=== PATIENT | female | born 1960 | race Caucasian/White ===

== ENCOUNTER 2016-09-14 23:51 | Emergency (ER) | payer OTHER ==
[~2016-09-14] VITALS: Wt 69.0 kg
[~2016-09-14 23:51] MED LIST: LEVO500T72 PO
[2016-09-15] MEDS ORDERED: DIAZEPAM 5 MG/ML SYG IM ONE (02:30)
[2016-09-15] MEDS ORDERED: HYDROCODONE/APAP (10/325) TAB PO ONE (02:30)
--- NOTE | 2016-09-15 02:42 | ERD ---
ER Documentation Chief Complaint Date/Time DATE: 09/15/16 TIME: 02:40 Chief Complaint low back pain while bending and lifting something not able to stand HPI 56-year-old female presents here in emergency department for complaint of lower back pain after bending today. Patient was trying to carry an object, bent down , started to have the pain afterwards. Patient described the pain as throbbing pain, 8/10 scale, is worse with movement accompanied with muscle spasms. Patient denies any incontinence. Patient denies hematuria or dysuria. Patient denies any direct trauma and affected area. Patient denies any numbness or tingling. Patient did not take any medications to help with symptoms. ROS All systems reviewed and are negative except as per history of present illness. Medications Home Meds Active Scripts Levofloxacin* (Levaquin*) 500 Mg Tablet, 500 MG PO DAILY for 7 Days, TAB Prov:THA JENSEN 08/29/15 Allergies Allergies: Coded Allergies: No Known Allergy (Unverified , 08/29/15) PMhx/Soc Medical and Surgical Hx: pt denies Medical Hx, pt denies Surgical Hx History of Surgery: Yes (REMOVAL OF TUMOR @ [facility]) Anesthesia Reaction: No Hx Neurological Disorder: No Hx Respiratory Disorders: No Hx Cardiac Disorders: No Hx Psychiatric Problems: No Hx Miscellaneous Medical Probl: No Hx Alcohol Use: No Hx Substance Use: No Hx Tobacco Use: No Smoking Status: Never smoker FmHx Family History: No coronary disease, No diabetes, No other Physical Exam Vitals Vital Signs Date Time Temp Pulse Resp B/P Pulse Ox O2 Delivery O2 Flow Rate FiO2 09/14/16 23:53 98.0 70 21 135/78 100 Physical Exam GENERAL: The patient is well developed and appropriate for usual state of health, in no apparent distress. CHEST: Clear to auscultation bilaterally. There are no rales, wheezes or rhonchi. HEART: Regular rate and rhythm. No murmurs, clicks, rubs or gallops. No S3 or S4. ABDOMEN: Soft, nontender and nondistended. Good bowel sounds. No rebound or guarding. No gross peritonitis. No gross organomegaly or masses. No Russell sign or McBurney point tenderness. BACK: No midline or flank tenderness. Muscle Spasms noted in the paraspinal aspect of the lumbar spine. Limitation of movement of the lumbar spine because of pain EXTREMITIES: Equal pulses bilaterally. There is no peripheral clubbing, cyanosis or edema. No focal swelling or erythema. Full range of motion. Grossly neurovascularly intact. NEURO: Alert and oriented. Cranial nerves 2-12 intact. Motor strength in all 4 extremities with 5/5 strength. Sensation grossly intact. Normal speech and gait. SKIN: There is no apparent rash or petechia. The skin is warm and dry. HEMATOLOGIC AND LYMPHATIC: There is no evidence of excessive bruising or lymphedema. No gross cervical, axillary, or inguinal lymphadenopathy. Results 24 hrs Current Medications Medications (Trade) Dose Ordered Sig/Adalid Route PRN Reason Start Time Stop Time Status Last Admin Dose Admin Acetaminophen/ Hydrocodone Bitart ([place] (10/325)) 1 tab ONCE ONCE PO 09/15/16 02:30 09/15/16 02:31 DC 09/15/16 02:49 Diazepam (Valium) 5 mg ONCE ONCE IM 09/15/16 02:30 09/15/16 02:31 DC 09/15/16 02:50 Patient was given medication for pain here in emergency department, after treatment, patient verbalized feeling much better. Patient's pain is improved. Valium was given for muscle relaxant, tolerated medication well. PROCEDURE: CT lumbar spine without contrast CLINICAL INDICATION: Back pain TECHNIQUE: CT scan of the lumbar spine was performed on a high-resolution multi-detector CT scanner. No IV contrast was administered. Coronal and sagittal reformatted images were obtained from the axial source images. Images were reviewed on a high-resolution PACS workstation. Exam CTDI = 18.03 mGy and the DLP = 651.51 mGy-cm. One or more of the following dose reduction techniques were used: - Automated exposure control. - Adjustment of the mA and/or kV according to patient size. - Use of iterative reconstruction technique. COMPARISON: None available FINDINGS: There is preservation of the normal lumbar lordosis. Alignment remains intact. No acute fracture or dislocation is seen. The vertebral body heights are all well preserved. At T11-12 there is disk space narrowing, vacuum disk phenomenon , anterior vertebral body osteophytes and diffuse disk bulge. Disk bulge is also seen at L3-4 through L5-S1. There is mild facet hypertrophy at L1-2. Mild central spinal stenosis is suggested at L4-5. Mild degenerative changes at sacroiliac joints. There is a 2 mm nonobstructing calculus in the mid right kidney. IMPRESSION: Mild thoracolumbar spondylosis as noted above. Mild central spinal stenosis at L4-5. Please see above. RPTAT: HJES .Zach Beauchamp MD, MD Date Time Electronically viewed and signed by .Zach Beauchamp MD, MD on 09/15/2016 03:16 .S/ CC: JOSE HOSKINS RECEIVING CLERK Procedures/MDM Medical Decision Making: Patient's pain is most likely consistent with a back muscle strain with degenerative disc disease, disc bulge. There is no suspicion for neurovascular compromise. Patient has intact sensation and circulation of the fell extremities, low suspicion for cauda equina syndrome, epidural abscess , epidural hematoma. There is low suspicion for septic arthritis. Patient does not have any fever. Radiology exams of the affected area does not show any fracture or dislocation. Disposition: Home. Patient is given prescription for ibuprofen for much better pain, Mint[place] for severe pain, Flexeril for muscle spasm. Patient was advised to avoid heavy lifting apply warm compresses on affected area. Patient was advised that if symptoms are worse, numbness, tingling, high fever, unable to move joint , worsening symptoms, to return to emergency department immediately. Otherwise, patient is advised to follow up with the primary care doctor in 5-7 days for reevaluation of symptoms. Departure Diagnosis: Primary Impression: Back pain Back pain location: low back pain Chronicity: acute Back pain laterality: bilateral Sciatica presence: without sciatica Qualified Code: M54.5 - Acute bilateral low back pain without sciatica Additional Impression: Degenerative disc disease Spinal region: lumbosacral Qualified Code: M51.37 - Degeneration of intervertebral disc of lumbosacral region Condition: Stable Patient Instructions: Back Pain (Acute Or Chronic), Degenerative Disk Disease Additional Instructions: Patient is given prescription for ibuprofen for much better pain, [place] for severe pain, Flexeril for muscle spasm. Patient was advised to avoid heavy lifting apply warm compresses on affected area. Patient was advised that if symptoms are worse, numbness, tingling, high fever, unable to move joint, worsening symptoms, to return to emergency department immediately. Otherwise, patient is advised to follow up with the primary care doctor in 5-7 days for reevaluation of symptoms. JOSE HOSKINS NP Sep 15, 2016 02:42
--- NOTE | 2016-09-15 03:17 | RADRPT ---
PROCEDURE: CT lumbar spine without contrast CLINICAL INDICATION: Back pain TECHNIQUE: CT scan of the lumbar spine was performed on a high-resolution multi-detector CT scanne r. No IV contrast was administered. Coronal and sagittal reformatted images were obtained from the axial source images. Images were reviewed on a high-resolution PACS workstation. Exam CTDI = 18.03 mGy and the DLP = 651.51 mGy-cm. One or more of the following dose reduction techniques were used: - Automated exposure control. - Adjustment of the mA and/or kV according to patient size. - Use of iterative reconstruction technique. COMPARISON: None available FINDINGS: There is preservation of the normal lumbar lordosis. Alignment remains intact. No acute fracture o r dislocation is seen. The vertebral body heights are all well preserved. At T11-12 there is disk s pace narrowing, vacuum disk phenomenon, anterior vertebral body osteophytes and diffuse disk bulge. Disk bulge is also seen at L3-4 through L5-S1. There is mild facet hypertrophy at L1-2. Mild central spinal stenosis is suggested at L4-5. Mild degenerative changes at sacroiliac joints. There is a 2 mm nonobstructing calculus in the mid right kidney. IMPRESSION: Mild thoracolumbar spondylosis as noted above. Mild central spinal stenosis at L4-5. Please see jose mckinney. RPTAT: HJES .Zach Beauchamp MD, MD Date Time Electronically viewed and signed by .Zach Beauchamp MD, on 09/15/2016 03:16 .S/
[2016-09-15] MEDS ORDERED: CYCL-319 PO (03:44)
[2016-09-15] MEDS ORDERED: IBUP-1542 PO (03:44)
[2016-09-15] MEDS ORDERED: HYDR-906 PO (03:44)
== END 2016-09-15 04:06 | disposition home or self-care (01) ==
LOC: FTE 23:51
DX: S39.92XA Unspecified injury of lower back, initial encounter (principal); M51.37 Other intervertebral disc degeneration, lumbosacral region; X50.1XXA Overexertion from prolonged static or awkward postures, initial encounter; Y92.9 Unspecified place or not applicable
CPT/HCPCS: 72131; 96372; J3360; Z7502; Z7610

== ENCOUNTER 2018-01-31 08:27 | Day surgery (SDC) | END 2018-01-31 12:00 | disposition home or self-care (01) ==